=== PATIENT | male | born 1995 | race Caucasian/White ===

== ENCOUNTER 2019-09-14 18:25 | Emergency (ER) | payer MEDICAID, SELFPAY ==
[2019-09-14 18:26] VITALS: BP 132/79; PULSE 75; RESP 19; TEMP 37; O2SAT 100; BMI 21.4
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
[2019-09-14] MEDS: Amox/Clavulanate 875 MG Tablet PO (19:24)
[2019-09-14 19:35] VITALS: PULSE 78; RESP 18; TEMP 37; O2SAT 97
== END 2019-09-14 19:38 | disposition home or self-care (01) ==
PROVIDERS: Emergency Provider Emergency Medicine
DX: J32.9 Chronic sinusitis, unspecified (principal); R11.0 Nausea
CPT/HCPCS: 99283

== ENCOUNTER 2020-11-24 16:22 | Emergency (ER) | payer MEDICAID, SELFPAY ==
[2020-11-24] VITALS (9 sets, daily range): BP systolic 136–159; BP diastolic 94–95; PULSE 94–105; RESP 12–20; TEMP 36.4–36.7; O2SAT 95–98; BMI 21.9
--- NOTE | 2020-11-24 16:36 | EKG12_ITS ---
Test Reason : MENTAL CLEARANCE Blood Pressure : / mmHG Vent. Rate : 092 BPM Atrial Rate : 092 BPM P-R Int : 136 ms QRS Dur : 084 ms QT Int : 324 ms P-R-T Axes : 071 066 049 degrees QTc Int : 400 ms Normal sinus rhythm Normal ECG Confirmed by CAMILO ARIAS, KVNG ([id number]), primer expeditor and drier JAMAAL BRIGGS ([id number]) on 11/28/2020 10:14:17 AM Referred By: RADHA Confirmed By:KVNG PAGE MD
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
[2020-11-24 17:13] LABS: Absolute Lymphocyte Count 1.46 X10^3/uL (0.83-4.51); Absolute Neutrophil Count 7.3 X10^3/uL (2.0-7.7); Basophil# 0.04 X10^3/uL; Basophil% 0.4 % (0-1); Eosinophil# 0.14 X10^3/uL; Eosinophils% 1.5 % (0-5); Hematocrit 42.8 % (40-54); Hemoglobin 15.2 g/dL (13.0-16.5); Lymphocyte # 1.46 X10^3/ul (0.83-4.51); Lymphocyte % 15.2 % (19-41); Mean Corp Hgb Conc 35.5 g/dL (32-36); Mean Corpuscular Hgb 29.9 pg (27.0-32.0); Mean Corpuscular Volume 84.3 fL (80-94); Mean Platelet Vol. 10.1 fl (6.2-12.0); Monocyte# 0.61 X10^3/uL; Monocyte% 6.4 % (0-10); NRBC Flagged by Analyzer 0 % (0-5); Neutrophil # 7.29 X10^3/uL (2.7-7.7); Neutrophil % 76.1 % (47-70); Platelet Count 263 K/mm3 (150-450); RBC Distribution Width CV 11.8 % (11.6-14.6); RBC Distribution Width SD 35.8 fl (35.1-43.9); Red Blood Count 5.08 M/mm3 (4.6-6.2); White Blood Count 9.6 K/mm3 (4.4-11.0)
[2020-11-24 17:29] LABS: Anion Gap 2 (5-15); BUN 12 mg/dL (7-18); BUN/Creat Ratio 9.5 RATIO (10-20); Chloride 107 mmol/L (98-107); Creatinine, Serum 1.26 mg/dL (0.70-1.30); EST Glomerular Filtration Rate 74 mL/min (>60); Est Glom Filt Rate - Afr Amer 90 mL/min (>60); Glucose 88 mg/dL (74-106); Potassium 4.3 mmol/L (3.5-5.1); Sodium Level 139 mmol/L (136-145)
[2020-11-24 18:45] LABS: Amphetamine Urine VISTA POSITIVE (<1000 ng/mL); Barbiturate Urine VISTA NEGATIVE (< 200 ng/mL); Benzodiazepine Urine VISTA NEGATIVE (< 200 ng/mL); Cocaine Urine VISTA NEGATIVE (< 300 ng/mL); Ecstacy Urine VISTA POSITIVE (< 500 ng/mL); Methadone Urine VISTA NEGATIVE (< 300 ng/mL); PCP Urine VISTA NEGATIVE (< 25 ng/mL); THC Urine VISTA POSITIVE (< 50 ng/mL); Vista UDS pH Range 6
[2020-11-25 00:53] VITALS: BP 136/89; PULSE 89; RESP 20; TEMP 36.8; O2SAT 100
[2020-11-25 02:00] VITALS: RESP 16
[2020-11-25 03:00] VITALS: BP 126/81; PULSE 83; RESP 14; TEMP 36.6; O2SAT 99
[2020-11-25 03:37] VITALS: BP 126/81; PULSE 83; RESP 16; TEMP 36.6; O2SAT 98
[2020-11-25 04:00] VITALS: RESP 14
== END 2020-11-25 04:55 ==
PROVIDERS: Emergency Provider Emergency Medicine
DX: F32.9 Major depressive disorder, single episode, unspecified (principal); F41.9 Anxiety disorder, unspecified; R45.851 Suicidal ideations
CPT/HCPCS: 36415; 80048; 80307; 82077; 85025; 93005; 99285

== ENCOUNTER 2025-01-22 22:51 | Emergency (ER) | payer MEDICAID, SELFPAY ==
[2025-01-22 22:51] VITALS: BP 145/94; PULSE 91; RESP 14; TEMP 36.1; O2SAT 98; BMI 22.4
--- OUTSIDE RECORDS SUMMARY | 2025-01-22 23:01 | XMS RPT_ITS | CCD ---
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 right lower thorax overlying the 6 costochondral junction. This finding may be related to the costochondral junctional lobe pulmonary nodule cannot be excluded. Similar finding is not identified on lateral projection. VASCULATURE: Normal. Unremarkable pulmonary vasculature. CARDIAC: Normal. No cardiac silhouette abnormality or cardiomegaly. MEDIASTINUM: Normal. No visible mass or adenopathy. PLEURA: Normal. No effusion or pleural thickening. BONES: Normal. No fracture or visible bony lesion. OTHER: Negative. CONCLUSION: 1. 6 mm nodular focus in the right lower thorax may be related to costochondral junction although pulmonary etiology cannot be excluded. 2. No other acute pulmonary abnormality is identified. Dictated by: Roma Kim MD on 01/10/2018 at 16:25 Approved by: Roma Kim MD on 01/10/2018 at 16:25 Normal [facility] EMERGENCY REPORTon 8 EMERGENCY REPORT [facility] EMERGENCY DEPARTMENT REPORT NAME NUMBER SEX AGE ADMIT DISC TYPE MED.RECORD# JEROME Skinner [id number] M 21 09/15/17 09/15/17 Jeffrey [id number] ROOM:[facility] DATE OF :1995 PHYSICIAN NO.:[id number] PHYSICIAN NAME:Margaux Larkin D.O. PHYSICIAN:VARSHA ROMAN FAMILY PHYSICIAN: VARSHA ROMAN CHIEF COMPLAINT: Flu like illness. HISTORY OF PRESENT ILLNESS: The patient is a 21-year-old male with no significant past medical history presenting with 3 to 4 days of flu like illness including cough, chills, and fever. His highest temperature has been 101 at home. Today, after the patient went to get off the toilet, he had a syncopal episode. The patient then came into the emergency room for further evaluation. The patient's daughter has similar symptoms, but no other sick contacts are noted. The patient does not have a yearly flu shot. The patient denies any other complaints at this time. The patient did not take any medications for symptoms prior to arrival. PAST MEDICAL HISTORY: Negative. ALLERGIES: No known drug allergies. PAST SURGICAL HISTORY: Denies. REVIEW OF SYSTEMS: Ten-point review of systems was performed and positive for malaise, decreased activity, decreased appetite, fever, and chills. The patient also had a syncopal episode today. Denies associated nausea, vomiting, diarrhea, constipation, or chest pain. PHYSICAL EXAMINATION: Vitals upon arrival: Blood pressure 143/75, pulse 93, respirations 18, temperature 98.3, pO2 95% on room air. In general, the patient is alert, awake and in no acute distress. HEENT: Normocephalic and atraumatic. Moist mucosa membranes. Normal tympanic membranes. Neck is supple. Trachea is midline. Lungs: Clear to auscultation bilaterally with no wheezing appreciated. Cardiac: Regular rate and rhythm with no murmur. Extremities: No edema. Equal pulses. Abdomen is soft and nontender. Neurologic: No focal or neurologic deficits noted. Psychiatric: The patient is behaving appropriately. DIAGNOSTIC DATA: The patient had a flu swab, which was positive for influenza B. Chest x-ray was performed secondary to his cough, which does not show any infiltrate and is otherwise normal. EMERGENCY DEPARTMENT COURSE AND TREATMENT: The patient is orthostatic positive and then given a bolus of normal saline in the ER. In addition, he was given 1 gram of Tylenol of 400 mg of ibuprofen for symptomatic relief. The patient has improvement of his symptoms. The patient appears nontoxic and in no acute distress. His symptoms are consistent with a flu like illness. He tests positive of influenza B. DIAGNOSES: 1. Influenza B. 2. Dehydration. PLAN/DISPOSITION: As the patient is young and healthy with no significant comorbidities, does not require inpatient admission. He is not a candidate for Tamiflu. He is counseled on symptomatic relief. EMERGENCY ROOM REPORT JEROME Skinner 1 [facility] EMERGENCY DEPARTMENT REPORT NAME NUMBER SEX AGE ADMIT DISC TYPE MED.RECORD# JEROME Skinner [id number] M 21 09/15/17 09/15/17 E.R. [id number] ROOM:ER-D DATE OF :1995 PHYSICIAN NO.:[id number] PHYSICIAN NAME:Margaux Larkin D.O. PHYSICIAN:VARSHA ROMAN [facility] PHYSICIAN: VARSHA ROMAN He is counseled on signs and symptoms requiring return to the emergency room. He is given information for follow up at [facility]. The patient verbalizes agreement and understanding of this plan. He is discharged home in improved and stable condition. D: Leona Larkin DO TD: 16:54 JOB #: [id number] Electronically signed by: Margaux Larkin D.O. 11/06/17 04:14 Transcribed by: am 09/16/2017 11:55 EMERGENCY ROOM REPORT JEROME Skinner 2 Normal [facility] CHEST PA/LATon 09-15-2017 CHEST PA/LAT [place] [address] Patient: JOSH CANO Phone#: : 1995 Age: 21 Gender: M Pt. Type: ER Account: [id number] Location: [facility] Ordering: LEONA LARKIN Exam Date: 09/15/2017/8:48 Family Phys: JORGE MADDOX Charge Code: [id number] Physician: [facility] Order #: [id number] DLP Dose#: PROCEDURE: X-RAY CHEST PA/LAT 2 VIEWS COMPARISON: [facility], XR, CHEST PA/LAT, 05/01/2016, 22:05. INDICATIONS: Cough FINDINGS: LUNGS: No acute pulmonary parenchymal abnormality. Calcified granuloma in the lateral left upper lobe. VASCULATURE: Normal. Unremarkable pulmonary vasculature. CARDIAC: Normal. No cardiac silhouette abnormality or cardiomegaly. MEDIASTINUM: Normal. No visible mass or adenopathy. PLEURA: Normal. No effusion or pleural thickening. BONES: Normal. No fracture or visible bony lesion. OTHER: Negative. CONCLUSION: No acute disease. No significant change has occurred. Dictated by: Violeta Castillo MD on 09/15/2017 at 17:43 Approved by: Violeta Castillo MD on 09/15/2017 at 17:43 Normal [facility] INFLUENZA VIRUS RAPID A/Bon 09-15-2017 INFLUENZA VIRUS RAPID A/B INFLUENZA ANEGATIVEINFLUENZA BPOSITIVEINTERNAL NEG QCPASSINTERNAL POS QCPASSEXTERNAL QC DONE?YESA NEGATIVE TEST RESULT DOES NOT EXCLUDE INFECTION WITHINFLUENZA A OR B. THEREFORE, THE RESULTS OBTAINED FROMTHIS FLU TEST SHOULD BE USED IN CONJUCTION WITH CLINICALFINDINGS TO MAKE AN ACCURATE DIAGNOSIS.INDIVIDUALS WHO HAVE RECEIVED NASALLY ADMINISTERED INFLUENZAA VACCINE MAY TEST POSITIVE IN COMMERCIALLY AVAILABLEINFLUENZA RAPID DIAGNOSTIC TESTS FOR UP TO THREE DAYS. Normal [facility] Comment on above: Performed By: #### [id number] ####[facility],[address] [place] [address] Vital Signs Date Time Vital Sign Value Performing Clinician Facility 11-03-2024 22:46-0400 Body height 167.6 cm Boby Galdamez DO Work Phone: [facility] 11-03-2024 22:46-0400 Body mass index (BMI) [Ratio] 21.79 kg/m2 Boby Galdamez DO Work Phone: [facility] 11-03-2024 22:46-0400 Body temperature 99.81 [degF] Boby Galdamez DO Work Phone: [facility] 11-03-2024 22:46-0400 Body weight 61.24 kg Boby Galdamez DO Work Phone: [facility] 11-03-2024 22:46-0400 Diastolic blood pressure 84 mm[Hg] Boby Galdamez DO Work Phone: [facility] 11-03-2024 22:46-0400 Heart rate 74 /min Boby Galdamez DO Work Phone: [facility] 11-03-2024 22:46-0400 Respiratory rate 16 /min Boby Galdamez DO Work Phone: [facility] 11-03-2024 22:46-0400 SaO2% (BldA) [Mass fraction] 100 % Boby Gadlamez DO Work Phone: [facility] 11-03-2024 22:46-0400 Systolic blood pressure 139 mm[Hg] Boby Galdamez DO Work Phone: [facility] 05-11-2022 10:41-0400 Body height 167.64 cm No PCP None [facility] Work Phone: 05-11-2022 10:41-0400 Body mass index (BMI) [Ratio] 24.37 kg/m2 No PCP None [facility] Work Phone: 05-11-2022 10:41-0400 Body surface area Derived from formula 1.77 m2 No PCP None [facility] Work Phone: 05-11-2022 10:41-0400 Body temperature 98 [degF] No PCP None [facility] Work Phone: 05-11-2022 10:41-0400 Body weight 68.49 kg No PCP None [facility] Work Phone: 05-11-2022 10:41-0400 Diastolic blood pressure 74 mm[Hg] No PCP None [facility] Work Phone: 05-11-2022 10:41-0400 Heart rate 97 /min No PCP None [facility] Work Phone: 05-11-2022 10:41-0400 Respiratory rate 18 /min No PCP None [facility] Work Phone: 05-11-2022 10:41-0400 SaO2% (BldA) [Mass fraction] 98 % No PCP None [facility] Work Phone: 05-11-2022 10:41-0400 Systolic blood pressure 134 mm[Hg] No PCP None [facility] Work Phone: Encounters Encounter Date Encounter Type Care Provider Facility Start: 11-03-2024 End: 11-03-2024 Emergency department patient visit Boby Galdamez DO Work Phone: [facility] Comment on above: Lipoma of torso (Kelley sue Dx) Start: 05-11-2022 Office outpatient ne w 45 minutes No PCP None [facility] Work Phone: Start: 01-10-2018 End: 01-10-2018 Emergency department patient visit BEV Mendoza [facility] Start: 09-15-2017 End: 09-15-2017 Emergency department patient visit LEONA MATTA [facility] Plan of Treatment Date Care Activity Detail Author Start: 10-28-2045 Zoster Vaccines (1 of 2) Zoste r Vaccines (1 of 2) [facility] Start: 03-29-2025 Influenza vaccination Influenz a Vaccine (Season Ended) [facility] Start: 03-29-2024 COVID-19 Vaccine ( season) COVID-19 Vaccine ( season) [facility] Start: 10-28-2017 DTaP/Tdap/Td Vaccine s (1 - Tdap) DTaP/Tdap/Td Vaccines (1 - Tdap) [facility] Start: 10-28-2014 Hepatitis B Vaccines (1 of 3 - 19+ 3-dose series) Hepatitis B Vaccines (1 of 3 - 19+ 3-dose series) [facility] Start: 10-28-2013 Hepatitis C screening Hepatitis C Sc [facility] Start: 10-28-2008 Varicella vaccination Varicell a Vaccines (1 of 2 - 13+ 2-dose series) [facility] Start: 10-28-1996 MMR Vaccines (1 of 1 - Standard series) MMR Vaccines (1 of 1 - Standard series) [facility] Start: 1995 HIV screening HIV Screening [facility] Start: 1995 Lipid panel Lipid Panel [facility] Start: 1995 Yearly Adult Physical Yearly Adult P hysical [facility] Payers Date Payer Category Payer Medicaid (Managed Care) [employer] [id number] 2019 Unknown [id number] 1995 Unknown [id number] Unknown [id number] Unknown [employer] Social History Date Type Detail Facility Non-smoker Non-smoker [facility] Work Phone: Tobacco smoking status CAIS Tobacco smoking consumption unknown [facility] Work Phone: Start: 1995 Sex assigned at Not on file [facility] Work Phone: Gender identity Not on file [facility] Work Phone: Start: 10-24-2024 End: 11-04-2024 Exposure to SARS-CoV-2 (event) Not sure [facility] Work Phone: Physician Emergency department Note 11-03-2024 Boby Galdamez DO - 11/03/2024 10:53 PM EDT Note Date & Type Note Facility 11-03-2024 Physician Emergency department Note HPI Chief Complaint Patient presents with OTHER Pt has a lump on his right flank, noticed it about 3 weeks ago states it is getting bigger 29-year-old male presents with subcutaneous lump lateral aspect of right chest wall. Patient states it has been there about 3 weeks and may have increased in size. Patient denies any pain to the area. Patient denies any injury. Patient denies any other symptoms. I did indicate to the patient I felt this was a lipoma and he will be referred to Dr. Eli for follow-up. History provided by: Patient Patient History No past medical history on file. No past surgical history on file. No family history on file. Social History Tobacco Use Smoking status: Not on file Smokeless tobacco: Not on file Substance Use Topics Alcohol use: Not on file Drug use: Not on file Physical Exam ED Triage Vitals [11/03/24 2246] Temperature Heart Rate Respirations BP 37.7 C (99.8 F) 74 16 139/84 Pulse Ox Temp src Heart Rate Source Patient Position 100 % -- -- -- BP Location FiO2 (%) -- -- Physical Exam Vitals and nursing note reviewed. Constitutional: General: He is not in acute distress. Appearance: He is well-developed. HENT: Head: Normocephalic and atraumatic. Eyes: Conjunctiva/sclera: Conjunctivae normal. Cardiovascular: Rate and Rhythm: Normal rate and regular rhythm. Heart sounds: No murmur heard. Pulmonary: Effort: Pulmonary effort is normal. No respiratory distress. Breath sounds: Normal breath sounds. Abdominal: Palpations: Abdomen is soft. Tenderness: There is no abdominal tenderness. Comments: Subcutaneous mass along the lower right chest wall. This appears to be a lipoma. Area is slightly swollen and nontender. Musculoskeletal: General: No swelling. Cervical back: Neck supple. Skin: General: Skin is warm and dry. Capillary Refill: Capillary refill takes less than 2 seconds. Neurological: Mental Status: He is alert. Psychiatric: Mood and Affect: Mood normal. ED Course & MDM Diagnoses as of 11/03/24 3509 Lipoma of torso No data recorded Rosie Coma Scale Score: 15 (11/03/242246 : Ophelia Hyde RN) Medical Decision Making 1 Motrin or Tylenol for pain 2 follow-up with Dr. Eli this week, if worse return to ED Procedure Procedures Boby Galdamez DO 11/03/242255 [facility] Work Phone: Emergency department Note 11-03-2024 Boby Galdamez DO - 11/03/2024 10:53 PM EDT Note Date & Type Note Facility 11-03-2024 Emergency department Note HPI Chief Complaint Patient presents with OTHER Pt has a lump on his right flank, noticed it about 3 weeks ago states it is getting bigger 29-year-old male presents with subcutaneous lump lateral aspect of right chest wall. Patient states it has been there about 3 weeks and may have increased in size. Patient denies any pain to the area. Patient denies any injury. Patient denies any other symptoms. I did indicate to the patient I felt this was a lipoma and he will be referred to Dr. Eli for follow-up. History provided by: Patient Patient History No past medical history on file. No past surgical history on file. No family history on file. Social History Tobacco Use Smoking status: Not on file Smokeless tobacco: Not on file Substance Use Topics Alcohol use: Not on file Drug use: Not on file Physical Exam ED Triage Vitals [11/03/242245] Temperature Heart Rate Respirations BP 37.7 C (99.8 F) 74 16 139/84 Pulse Ox Temp src Heart Rate Source Patient Position 100 % -- -- -- BP Location FiO2 (%) -- -- Physical Exam Vitals and nursing note reviewed. Constitutional: General: He is not in acute distress. Appearance: He is well-developed. HENT: Head: Normocephalic and atraumatic. Eyes: Conjunctiva/sclera: Conjunctivae normal. Cardiovascular: Rate and Rhythm: Normal rate and regular rhythm. Heart sounds: No murmur heard. Pulmonary: Effort: Pulmonary effort is normal. No respiratory distress. Breath sounds: Normal breath sounds. Abdominal: Palpations: Abdomen is soft. Tenderness: There is no abdominal tenderness. Comments: Subcutaneous mass along the lower right chest wall. This appears to be a lipoma. Area is slightly swollen and nontender. Musculoskeletal: General: No swelling. Cervical back: Neck supple. Skin: General: Skin is warm and dry. Capillary Refill: Capillary refill takes less than 2 seconds. Neurological: Mental Status: He is alert. Psychiatric: Mood and Affect: Mood normal. ED Course & MDM Diagnoses as of 11/03/242254 Lipoma of torso No data recorded Lalito Coma Scale Score: 15 (11/03/242246 : Ophelia Hyde RN) Medical Decision Making 1 Motrin or Tylenol for pain 2 follow-up with Dr. Eli this week, if worse return to ED Procedure Procedures Boby Galdamez DO 11/03/242255 documented in this encounter [facility] Work Phone: History of Present illness Narrative 05-09-2022 Note Date & Type Note Facility 05-09-2022 History of Presen t illness Narrative Patient is a 26-year-old male with a chief complaint of a welding flash to his left. Patient reports the incident occurred while at work on 05/09/2022. Patient states that his eye is painful and photophobic. Patient denies any ocular discharge, but does have redness. Patient denies any fevers or chills. Patient denies any coughs, wheezing, chest pain or shortness of breath. Patient denies any fdkd-ife-[id number] eyedrop relief. Patient states symptoms are improving. [facility] Work Phone: Evaluation note Note Date & Type Note Facility Evaluation note Diagnosis Lipoma of torso- Primary documented in this encounter [facility] Work Phone: Summary Purpose Family History No Family History Records FoundNo Family History Records FoundNo Family History Records FoundNo Family History Records Found Advance Directives No Advanced Directives Records FoundNo Advanced Directives Records FoundNo Advanced Directives Records FoundNo Advanced Directives Records Found Chief Complaint * Date of Injury: * 05/09/2022. Additional Source Comments (unrecognized sect ion and content) No Status Records FoundNo Status Records FoundNo Status Records FoundNo Status Records Found INFORMATION SOURCE (unrecogn ized section and content) DATE CREATED AUTHOR 01/16/2018 Octaviodrake Escobedojuan [facility] DATE CREATED AUTHOR AUTHOR'S ORGANIZ ATION 01/17/2019 [facility] DATE CREATED AUTHOR AUTHOR'S ORGANIZ ATION 09/09/2021 [facility] DATE CREATED AUTHOR AUTHOR'S ORGANIZ ATION 11/09/2024 [facility] Reason for Visit (unrecogniz ed section and content) Reason Comments OTHER Pt has a lump on his right flank, noticed it about 3 weeks ago states it is getting bigger FOR RECORDS PERTAINING TO PATIENTS WHO ARE OR HAVE BEEN ENROLLED IN A CHEMICAL DEPENDENCY/SUBSTANCEABUSE PROGRAM, SOME INFORMATION MAY BE OMITTED. This clinical summary was aggregated from multiple sources. Caution should be exercised in using it in the provision of clinical care. This summary normalizes information from multiple sources, and as a consequence, information in this document may materially change the coding, format and clinical context of patient data. In addition, data may be omitted in some cases. CLINICAL DECISIONS SHOULD BE BASED ON THE PRIMARY CLINICAL RECORDS. [facility]. provides no warranty or guarantee of the accuracy or completeness of information in this document.
[2025-01-22] MEDS: Doxycycline 100 MG CAPSULE 200 MG PO (23:36)
--- NOTE | 2025-01-22 23:39 | EX.ED.DYSGE1 ---
HPI History of Present Illness Chief Complaint: Bite Informant: patient Onset/Context/Timing Onset: Days Context: Gradual Onset Timing: Continuous Current Severity: Mild Maximum Severity: Mild Narrative Narrative: 29-year-old male no seen past medical history. Tick bite left lower lateral abdomen about 5 days ago. Removed he did not think has been there very long. It was not engorged. Since then he has developed redness in the area and discomfort to the skin. Denies fever or chills. Prior similar symptoms: No Recent Illness/Hospitalization: No PFSH PFSH Medical History Depression Anxiety Home Medications ?Medication ?Instructions ?Recorded ?Last Taken ?Type cephalexin 500 mg capsule 500 mg PO Q6 7 days #28 CAPSULES 01/22/25 Unknown Rx Allergy/AdvReac Type Severity Reaction Status Date / Time No Known Allergies Allergy Verified 01/22/25 22:51 Social History Smoking Status: Never smoker ROS ROS ED ROS Narrative Denies fever or chills. No nausea vomiting diarrhea. Circular rash left lower abdomen where there was a prior tick bite. Constitutional Constitutional ED: Denies chills or fever(s) Eyes Eyes: Denies blurry vision ENT ENT ED: Denies ear pain Cardiovascular Cardiovascular: Denies chest pain Respiratory/Chest Respiratory/Chest: Denies cough or dyspnea Gastrointestinal Gastrointestinal: Denies abdominal pain Genitourinary Genitourinary ED: Denies dysuria or hematuria Musculoskeletal Musculoskeletal: Denies arthralgias, back pain, myalgias or neck pain Integumentary Reports rash; Denies abscess or Abrasions Neurologic Neurologic: Denies headache(s) Psychiatric Psychiatric: Denies anxiety Endocrine Endocrinology: Denies cold intolerance Hematologic/Lymphatic Hematologic/Lymphatic: Reports none Allergic/Immunologic Allergic/Immunologic ED: Denies mouth swelling, tongue swelling or urticaria EXAM Physical Exam Narrative Exam Narrative: Well-appearing 29-year-old male. Vital signs stable afebrile. Significant other present with him. H EENT exam pupils round react light. Moist mucous membranes. Lungs clear to auscultation. Heart regular rhythm rate about 90 no murmur. Chest wall ribs nontender. Right lower chest wall there is a soft tissue density may be a lipoma. It is nontender. Abdomen soft nondistended normal bowel sounds without peritoneal signs. There is a circular area about 3 inches in diameter rash where the prior tick bite. This appears to be a local cellulitis. Mildly tender to the touch. No pus. Moving all 4 extremities. Nontender no edema. Back nontender. He is awake and alert. No focal motor deficits. Const Vital Signs: 01/22/25 22:51 Temperature 97 F L Temperature Source Temporal Pulse Rate 91 Respiratory Rate 14 Blood Pressure 145/94 H Blood Pressure Mean 111 Pulse Ox 98 Oxygen Delivery Method Room Air Positive well nourished and well developed; Negative for obese, cachectic, contractures or unkempt General Appearance ED: well developed and NAD; Negative for unkempt, cachectic, contractures, cyanotic, diaphoretic or pallor Nutritional Appearance: Negative for cachectic or obese HEENT Reports moist mucous membranes Eyes PERRL and EOMs intact bilaterally Neck no lymphadenopathy, supple and no JVD Chest Wall inspection of chest normal and palpation of chest normal Resp normal respiratory effort and clear to auscultation bilaterally Cardio regular rate, regular rhythm, S1 normal heart sound, S2 normal heart sound and no murmurs GI normal to inspection, nondistended, normoactive bowel sounds, non-tender, non-distended and no masses Palpation: soft; Negative for tender, guarding, mass or rebound tenderness present Back/Spine no CVA tenderness General Back: Negative for CVA tenderness Cervical Spine: Negative for cervical spine tenderness Thoracic Spine / Upper Back: Negative for thoracic spinal tenderness or paraspinal muscle tenderness Lumbar Spine / Lower Back: Negative for lumbar spinal tenderness Extremity normal to inspection General Extremety ED: Negative for edema or tenderness General Extremity: Negative for edema Neuro oriented x3, CN's II-XII intact bilaterally and no sensory deficits noted Sensorium / Orientation: alert Motor Exam: strength 5/5 throughout Psych mental status grossly normal Appearance: Negative for unkempt Skin No no rashes or lesions noted, no wounds and skin turgor normal Skin Narrative: Circular rash left lower lateral abdomen. Consistent with cellulitis. Approximately 3 inches in diameter. General Skin Exam: Negative for jaundice or pallor Rashes: rashes noted MDM MDM MDM Narrative Medical decision making narrative: 29-year-old male reportedly bit by a tick he believes about 5 days ago. There is a rash in that area now consistent with a cellulitis. Will be given 1 dose of doxycycline as a prophylaxis for possible Lyme disease. To be placed on Keflex 500 4 times daily for 7 days for a soft tissue cellulitis. He does not need labs, imaging or IV antibiotics. History & Record Review Discussion w/independent historian: Patient Discharge Plan Triage Chief Complaint: Bite ED Provider: Juvenal Pineda Dx/Rx/DC Orders Clinical Impression: Tick bite, Cellulitis Instructions: ED Cellulitis, ED Tick Bite, Antibiotic Treatment Prescriptions: New cephalexin 500 mg capsule 500 mg PO Q6 7 Days Qty: 28 0RF Primary Care Provider: Care Physician,No Primary Referrals: Feliz Noriega MD [[facility] - [facility] [employer]] - 1 Week if not improving Care Physician,No Primary [Primary Care Provider] - Activity Restrictions/Additional Instructions: The antibiotic Keflex 1 pill 4 times a day till gone. This should progressively improve the area of the redness. If is not getting better and getting worse return for further evaluation. Print Language: Guatemalan Disposition Disposition: Home, Self Care
[2025-01-22 23:48] VITALS: BP 126/86; PULSE 66; RESP 16; TEMP 36.6; O2SAT 97
== END 2025-01-22 23:53 | disposition home or self-care (01) ==
PROVIDERS: Emergency Provider Emergency Medicine; Visit Provider Emergency Medicine
DX: S30.861A Insect bite (nonvenomous) of abdominal wall, initial encounter (principal); W57.XXXA Bitten or stung by nonvenomous insect and other nonvenomous arthropods, initial encounter; L03.311 Cellulitis of abdominal wall
CPT/HCPCS: 99282

== ENCOUNTER 2025-04-11 23:16 | Emergency (ER) | payer MEDICAID, SELFPAY ==
[2025-04-11 23:17] VITALS: BP 146/90; PULSE 100; RESP 18; TEMP 36.9; O2SAT 99; BMI 22.2
--- NOTE | 2025-04-11 23:44 | EDS_ITS ---
HPI History of Present Illness Chief Complaint: Male Pain/Injury Informant: patient Narrative Narrative: Patient is a 29-year-old male who reports a past medical history of anxiety and depression. He states that he and his have been having difficulties and t hat she has been out going to clubs. He states there has been no recent trauma and he denies any dysuria or penile discharge but noticed over the last 2 days that he has had increased swelling and pain along the left testicle. He has concern for an infection because of this and therefore comes in for evaluation [facility] Medical History Depression Anxiety Home Medications ?Medication ?Instructions ?Recorded ?Last Taken ?Type doxycycline monohydrate 100 mg 100 mg PO BID 14 days # 28 CAPSULES 04/11/25 Unknown Rx capsule Allergy/AdvReac Type Severity Reaction Status Date / Time No Known Allergies Allergy Verified 04/11/25 23:21 Social History Smoking Status: Never smoker ROS [facility] ED Constitutional Constitutional ED: Denies chills or fever(s) ENT ENT ED: Denies sore throat Cardiovascular Cardiovascular: Denies chest pain Respiratory/Chest Respiratory/Chest: Denies cough or dyspnea Gastrointestinal Gastrointestinal: Denies abdominal pain, diarrhea, nausea or vomiting Genitourinary Genitourinary ED: Reports other; Denies dysuria, hematuria or urinary frequency Musculoskeletal Musculoskeletal: Denies myalgias Integumentary Denies rash Neurologic Neurologic: Denies headache(s) Hematologic/Lymphatic Hematologic/Lymphatic: Denies easy bleeding or easy bruising EXAM Physical Exam Const Vital Signs: 04/11/25 23:17 04/12/25 00:16 Temperature 98.4 F 99 F Temperature Source Temporal Pulse Rate 100 102 H Respiratory Rate 18 20 H Blood Pressure 146/90 H 144/75 H Blood Pressure Mean 108 98 Pulse Ox 99 100 Oxygen Delivery Method Room Air Positive well nourished and well developed General Appearance ED: well developed; Negative for pallor HEENT HEENT Narrative: Normocephalic atraumatic Eyes PERRL and EOMs intact bilaterally General Eye ED: Negative for scleral icterus Neck supple Resp normal respiratory effort and clear to auscultation bilaterally Cardio regular rate and regular rhythm GI non-tender, non-distended and no masses Auscultation: normoactive bowel sounds Palpation: soft no CVA tenderness Narrative: There is asymmetric swelling of the left testicle compared to the right. There is pain with palpation along the upper posterior section of the left testicle consistent with epididymitis. Pain does improve with elevation of the scrotum. No cellulitis or abscess formation noted No discharge from the urethral meatus. No abnormal lie to the testicles present Extremity normal to inspection Neuro oriented x3, CN's II-XII intact bilaterally and moves all extremities Sensorium / Orientation: alert Motor Exam: strength 5/5 throughout Psych mental status grossly normal Skin no rashes or lesions noted General Skin Exam: Negative for jaundice or pallor MDM MDM MDM Narrative Medical decision making narrative: Patient arrived to the ER complaining of asymmetric swelling of the left testicle compared to the right without trauma. History and exam is most concerning for epididymitis most likely from a STI based on the patient's report of nontraumatic swelling and pain and recent marital discourse. He does not have any findings for systemic infection and by physical exam he does not have a cellulitis abscess or signs of torsion so do not feel the need for emergent ultrasound or further testing. The patient's urine will be sent for gonorrhea and chlamydia testing but as there is high likelihood this is the cause of his symptoms he will be treated with Rocephin in the ER and then placed on a 14-day course of doxycycline secondary to the epididymitis. Patient was advised he cannot have sexual activity for at least 7 days based on the high concern for STI but otherwise as he denied findings of systemic infection or torsion is otherwise safe for discharge History & Record Review Discussion w/independent historian: Patient Discharge Plan Triage Chief Complaint: Male Pain/Injury ED Provider: Alan Schwarz Dx/Rx/DC Orders Clinical Impression: Acute epididymitis, Anxiety and depression Instructions: Understanding STIs, ED Epididymitis Prescriptions: New doxycycline monohydrate 100 mg capsule 100 mg PO BID 14 Days Qty: 28 0RF Primary Care Provider: Care Physician,No Primary Referrals: Care Physician,No Primary [Primary Care Provider] - Activity Restrictions/Additional Instructions: Your history and exam is consistent with epididymitis and this is most likely caused by a STI such as gonorrhea or chlamydia. Refrain from sexual activity for the next 7 days. Take the antibiotic as directed to resolve the infection. It would typically take 2 to 3 days before you notice improvement. Return to the ER should you have any further concerns Print Language: Belarusian Disposition Disposition: Home, Self Care Discharge Date/Time: 04/12/25 00:37
--- OUTSIDE RECORDS SUMMARY | 2025-04-11 23:47 | XMS RPT_ITS | CCD ---
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 No January 22, 2025 11:08pm Chief Complaint * Date of Injury: * 05/09/2022. Chief Complaint and Reason for Visit Chief Complaint Admit Date TICK January 22, 2025 10:5 1pm Additional Source Comments (unrecognized sect ion and content) No Status Records FoundNo Status Records FoundNo Status Records FoundNo Status Records Found INFORMATION SOURCE (unrecogn ized section and content) DATE CREATED AUTHOR 01/16/2018 [facility] DATE CREATED AUTHOR AUTHOR'S ORGANIZ ATION 01/17/2019 [facility] DATE CREATED AUTHOR AUTHOR'S ORGANIZ ATION 11/09/2024 [facility] DATE CREATED AUTHOR AUTHOR'S ORGANIZ ATION 01/29/2025 [facility] Reason for Visit (unrecogniz ed section and content) Reason Comments OTHER Pt has a lump on his right flank, noticed it about 3 weeks ago states it is getting bigger Care Teams (unrecognized sec tion and content) Team Status: Active Member Role/Relationship Status Dates No Primary Care Physician Primary Care Provider Active Team Status: Inactive Member Role/Relationship Status Dates No Primary Care Physician Primary Care Provider Active Start: January 22, 2025 End: January 22, 2025 Dr. Juvenal Pineda MD Emergency Provider Active S tart: January 22, 2025 End: January 22, 2025 Goals (unrecognized section and content) Goals may be documented in a n alternate section FOR RECORDS PERTAINING TO PATIENTS WHO ARE [...] BE BASED ON THE PRIMARY CLINICAL RECORDS. [facility] [employer] [facility]. provides no warranty or guarantee of the accuracy or completeness of information in this document.
[2025-04-12 00:16] VITALS: BP 144/75; PULSE 102; RESP 20; TEMP 37.2; O2SAT 100
[2025-04-12] MEDS: Doxycycline monohydrate 25 MG/5 ML SUSP. 100 MG PO (00:17)
== END 2025-04-12 00:37 | disposition home or self-care (01) ==
PROVIDERS: Emergency Provider Emergency Medicine; Visit Provider Emergency Medicine
DX: N45.1 Epididymitis (principal); F41.9 Anxiety disorder, unspecified; F32.A Depression, unspecified
CPT/HCPCS: 87491; 87591; 99283

== ENCOUNTER 2025-06-24 00:59 | Emergency (ER) | payer MEDICAID, SELFPAY ==
[2025-06-24 01:01] VITALS: PULSE 58; RESP 16; TEMP 36.4; O2SAT 100; BMI 22.8
[2025-06-24] MEDS: 0.9% Normal Saline (1000mL) 1,000 ML 999 ML IV (01:13)
--- NOTE | 2025-06-24 01:13 | EDS_ITS ---
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 Patient was brought in by law enforcement. - Received first Sublocade injection today. - Reports onset of nausea shortly after the injection, with emesis occurring within the last hour. - Denies abdominal cramping, diarrhea, or significant chest pain. - Reports feeling malaised and experiencing chills. - Denies taking any other prescriptions besides the Sublocade injection. - Brought to the ED by law enforcement. Not under arrest; doughnut dough mixer states pt soft spoken but nothing unusual in their interaction otherwise. [facility] Medical History Depression Anxiety Home Medications Medication Instructions Recorded Last Taken Type buprenorphine 300 mg/1.5 mL 300 mg subcut Q7D 06/24/25 06/24/25 History solution,exten.rel.subcutaneous syringe (Sublocade) buprenorphine 4 mg-naloxone 1 mg 1 ea sublingual DAILY 06/24/25 06/24/25 History sublingual film ondansetron 8 mg disintegrating 8 mg PO Q8H PRN nausea and 06/24/25 Unknown Rx tablet vomiting #10 tabs Allergy/AdvReac Type Severity Reaction Status Date / Time No Known Allergies Allergy Verified 06/24/25 01:04 Social History Smoking Status: Never smoker ROS ROS ED Constitutional Constitutional ED: Reports chills and malaise; Denies fever(s) Eyes Eyes: Denies change in vision or diplopia ENT ENT ED: Denies rhinorrhea or sore throat Cardiovascular Cardiovascular: Denies chest pain or palpitations Respiratory/Chest Respiratory/Chest: Denies cough or dyspnea Gastrointestinal Gastrointestinal: Reports hematemesis, nausea and vomiting; Denies abdominal pain, diarrhea, hematochezia or melena Genitourinary Genitourinary ED: Denies dysuria or hematuria Musculoskeletal Musculoskeletal: Denies back pain or neck pain Integumentary Denies abscess or rash Neurologic Neurologic: Denies headache(s), paresthesias or weakness Psychiatric Psychiatric: Denies suicidal thoughts EXAM Physical Exam Const Vital Signs: 06/24/25 01:01 Temperature 97.5 F L Temperature Source Temporal Pulse Rate 58 L Respiratory Rate 16 Pulse Ox 100 Oxygen Delivery Method Room Air Positive well nourished and well developed Constitutional Narrative: Somnolent but eyes open and respond to questions appropriately. General Appearance ED: well developed and NAD HEENT Reports moist mucous membranes normocephalic and atraumatic Eyes PERRL and EOMs intact bilaterally Neck full ROM and supple Resp normal respiratory effort and clear to auscultation bilaterally Cardio regular rate, regular rhythm and no murmurs GI non-tender and non-distended Auscultation: normoactive bowel sounds Palpation: soft Back/Spine no CVA tenderness General Back: other FROM Extremity normal to inspection General Extremety ED: Negative for edema, pulses abnormal or tenderness General Extremity: Negative for edema or pulses abnormal Neuro oriented x3, CN's II-XII intact bilaterally and no sensory deficits noted Sensorium / Orientation: awake and alert Motor Exam: strength 5/5 throughout Psych thought process normal Psych Narrative: Flat affect, poverty of speech. Cooperative. Skin no rashes or lesions noted and no wounds MDM MDM MDM Narrative Medical decision making narrative: Patient has normal vital signs and does not have tachycardia. He does not have abdominal cramping or diarrhea, or any other symptoms to suggest that he is in acute precipitated withdrawal after receiving a buprenorphine injection earlier today. He has an emesis bag with a few drops of blood in it and states that he noticed he vomited that. He did not vomit any large amounts of blood to his knowledge. Given this, I think it is reasonable to obtain some baseline labs right now, as well as provide symptomatic care with IV fluids, Zofran, and a dose of pantoprazole 40 mg IV. The patient’s labs are normal and his vital signs remain normal. He was given a liter of IV fluids and Zofran, and on re-evaluation he is able to drink water without nausea or vomiting. He is a little somnolent, but it is also 2:30 AM, and he does not have any objective respiratory depression. His pulse oximetry is 100% and his respirations are 16. His hemoglobin is reassuring at 17.3, and his chemistries show no signs of dehydration. His lipase is normal. Given all of this, my suspicion is that these findings reflect an adverse effect of the medication, which is listed as a fairly common side effect in the product literature. He had no more than a few drops of blood in his emesis bag; no blood clots or large amount of blood prior to arrival vomited per patient. Minor [place] tear in the differential. I think at this time he is stable for discharge home, and I will offer him a prescription for Zofran to use as needed. He states he does methamphetamine which is the reason he was given Sublocade, and does not use heroin or fentanyl, so it would make sense that he is technically an opioid-naïve patient who would be more likely to have side effects from an injection of buprenorphine. Lab Data Attestation: I reviewed the patient's lab results. Labs: Laboratory Results - last 24 hr 06/24/25 01:05 WBC 7.9 RBC 6.01 Hgb 17.3 H Hct 49.9 MCV 83.0 MCH 28.8 MCHC 34.7 RDW Std Deviation 39.5 RDW Coeff of Ra 13.1 Plt Count 268 MPV 10.4 Immature Gran % (Auto) 0.300 Neut % (Auto) 59.3 Lymph % (Auto) 29.3 [place] % (Auto) 6.4 Eos % (Auto) 3.9 Baso % (Auto) 0.8 Absolute Neuts (auto) 4.7 Absolute Lymphs (auto) 2.30 Nucleated RBC % 0 Sodium 137 Potassium 4.2 Chloride 99 Carbon Dioxide 27.4 Anion Gap 11 BUN 12 Creatinine 0.94 Estim Creat Clear Calc 108.41 Est GFR (MDRD) Non-Af 112 BUN/Creatinine Ratio 12.5 Glucose 129 H Calcium 9.8 Lipase 24 Discharge Plan Triage Chief Complaint: Nausea/Vomiting ED Provider: Ruben Henriquez Dx/Rx/DC Orders Clinical Impression: N&V (nausea and vomiting), Adverse effect of other opioids, initial encounter, Hematemesis Instructions: ED Drug Reaction, Other, ED Upper GI Bleeding (Stable) Prescriptions: New ondansetron 8 mg tablet,disintegrating 8 mg PO Q8H PRN (Reason: nausea and vomiting) Qty: 10 0RF No Action Sublocade 300 mg/1.5 mL solution, extended rel syringe 300 mg SUBCUT Q7D Patient Comments: [NO ORIGINAL SIG] buprenorphine-naloxone 4-1 mg film 1 ea sublingual DAILY Primary Care Provider: Care Physician,No Primary [facility] [Non[facility]Staff, Medical] - 3-5 Days if not improving Print Language: Slovenian Disposition Disposition: Home, Self Care
[2025-06-24] MEDS: Pantoprazole Sodium 40 MG in 0.9% Normal Saline (100mL MB+) 100 ML 300 MG IV (01:17)
[2025-06-24 01:18] LABS: Hematocrit 49.9 % (40-54); Hemoglobin 17.3 g/dL (13.0-16.5); Immature Granulocytes Count 0.020 X10^3/uL (0.0-0.0); Mean Corp Hgb Conc 34.7 g/dL (32-36); Mean Corpuscular Volume 83.0 fL (80-94); Mean Platelet Vol. 10.4 fl (6.2-12.0); NRBC Flagged by Analyzer 0 % (0-5); Platelet Count 268 K/mm3 (150-450); RBC Distribution Width CV 13.1 % (11.6-14.6); RBC Distribution Width SD 39.5 fl (35.1-43.9); Red Blood Count 6.01 M/mm3 (4.6-6.2); White Blood Count 7.9 K/mm3 (4.4-11.0)
--- OUTSIDE RECORDS SUMMARY | 2025-06-24 01:25 | XMS RPT_ITS | CCD ---
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 section and content) Goals may be documented in a n alternate sectionGoals may be documented in an alternate section FOR RECORDS PERTAINING TO PATIENTS [...] BE BASED ON THE PRIMARY CLINICAL RECORDS. [facility] [employer] provides no warranty or guarantee of the accuracy or completeness of information in this document.
[2025-06-24 01:55] LABS: Lipase 24 U/L (13-75)
[2025-06-24 02:06] LABS: Anion Gap 11 (5-15); BUN 12 mg/dL (4-19); BUN/Creat Ratio 12.5 RATIO (10-20); Calcium,Total 9.8 mg/dL (7.6-11.0); Carbon Dioxide 27.4 mmol/L (21.0-32.0); Chloride 99 mmol/L (98-108); Estimated Creatinine Clearance 108.41 ml/min (50-250); Glucose 129 mg/dL (70-99); Potassium 4.2 mmol/L (3.3-5.1)
[2025-06-24 02:44] VITALS: BP 148/111; PULSE 60; RESP 14; TEMP 36.6; O2SAT 98
== END 2025-06-24 03:28 | disposition home or self-care (01) ==
PROVIDERS: Emergency Provider Emergency Medicine; Visit Provider Emergency Medicine
DX: K92.0 Hematemesis (principal); T40.495A Adverse effect of other synthetic narcotics, initial encounter; F15.90 Other stimulant use, unspecified, uncomplicated
CPT/HCPCS: 80048; 83690; 85025; 96365; 96375; 99283; A4216; J2405